=== PATIENT | female | born 1935 | race Two or more races ===

== ENCOUNTER 2022-03-01 20:15 | Inpatient (IN) | payer OTHER, SELFPAY ==
[2022-03-01 21:00] LABS: #Basophils 0.1 10x3/uL (0.0-0.2); #Monocytes 0.7 10x3/uL (0.0-1.1); #Neutrophils 16.5 10x3/uL (1.5-8.4); %Basophils 0.4 % (0.0-2.0); %Eosinophils 0.2 % (0.0-6.0); %Lymphocytes 5.8 % (18.0-47.0); %Monocytes 3.6 % (0.0-10.0); %Neutrophils 89.3 % (40.0-75.0); Hemoglobin 10.5 g/dL (12.0-15.5); Mean Corpuscular HGB CONC 34.2 g/dL (32.0-36.0); Mean Corpuscular Volume 93.6 fl (81.6-98.3); Mean Platelet Volume 9.2 fl (7.4-10.4); Platelet Count 433 10x3/uL (150-450); RBC Distribution Width 12.1 % (11.5-14.5); Red Blood Cell (RBC) Count 3.28 10x6/uL (3.90-5.03); White Blood Cell (WBC) Count 18.4 10x3/uL (3.5-10.5)
[2022-03-01 21:06] LABS: PTT 26.2 sec (22.0-33.0); Prothrombin Time 10.6 sec (9.5-12.1)
[2022-03-01 21:09] LABS: ALT (SGPT) 13 U/L (8-55); AST (SGOT) 21 U/L (5-34); Albumin 3.7 g/dL (3.4-4.8); Alkaline Phosphatase 45 U/L (40-110); Anion Gap 13 mmol/L (10-20); BUN (Urea Nitrogen) 9 mg/dL (9.8-20.1); Bilirubin, Total 0.5 mg/dL (0.2-1.2); Calc. Creatinine Clearance 0 mL/min (70-130); Calcium 8.9 mg/dL (7.8-10.44); Carbon Dioxide 24 mmol/L (23-31); Chloride 98 mmol/L (98-107); Estimated GFR 87; Globulin 3.8 g/dL (2.4-3.5); Glucose 188 mg/dL (83-110); Magnesium 1.8 mg/dL (1.6-2.6); Potassium 3.8 mmol/L (3.5-5.1); Protein, Total 7.5 g/dL (5.8-8.1); Sodium 131 mmol/L (136-145)
[2022-03-01] MEDS ORDERED: Ondansetron PF 4 MG/2 ML Vial ONE (21:26)
[2022-03-01 21:59] LABS: SARS-CoV-2 NAA Rapid Test Not Detected (NotDetected)
[2022-03-01] MEDS ORDERED: Morphine 4 MG/ML VIAL ONE (22:03)
[2022-03-02] MEDS ORDERED: Morphine 2 MG/ML VIAL ONE (00:52)
[2022-03-02] MEDS ORDERED: Ondansetron PF 4 MG/2 ML Vial ONE (03:09)
[2022-03-02] MEDS ORDERED: Morphine 4 MG/ML VIAL ONE (05:56)
[2022-03-02 06:17] LABS: Bilirubin Neg (Negative); Blood, Urine Negative (Negative); Clarity Clear (Clear); Glucose, Urine (Dipstick) 100 mg/dL (Negative); Ketone, Urine Negative (Negative); Leukocyte 25 (Negative); Nitrite Negative (Negative); Protein, Urine (Dipstick) Negative (Neg-Trace); Specific Gravity, Urine 1.015 (1.005-1.030); Urobilinogen Normal mg/dL (Less than 2)
[2022-03-02 06:22] LABS: Bacteria/HPF 1+ HPF (None Seen); RBC/HPF 0-3 HPF (0-3)
[2022-03-02] MEDS ORDERED: cefTRIAXone\\ROCEPHIN 1 GM VIAL ONE (06:40)
[2022-03-02] MEDS ORDERED: Ondansetron ODT 4 MG TAB PO PRN (10:27)
[2022-03-02] MEDS ORDERED: TETANUS, DIPHTHERIA TOX,ADULT (TDVAX) 0.5 ML VIAL IM ONE (10:29)
[2022-03-02] MEDS ORDERED: Communication Order-Pharmacy FS SCH (10:30)
[2022-03-02] MEDS: HYDROcodone/Acetaminophen 7.5/325 mg Tablet PO PRN ×2 (10:39→22:58)
[2022-03-02] MEDS: Ondansetron PF 4 MG/2 ML Vial IVP PRN (10:41)
[2022-03-02] MEDS ORDERED: Dextrose 5% in Water 1,000 ML IV PRN (13:05)
[2022-03-02] MEDS ORDERED: Dextrose 50% Abboject 50 ML SYRINGE SLOW IVP PRN (13:05)
[2022-03-02] MEDS ORDERED: Insulin Regular 300 UNITS/3 ML VIAL SC PRN (13:05)
[2022-03-02] MEDS: Aspirin 81 mg Enteric Coated Tablet PO SCH (21:35)
[2022-03-02] MEDS: metFORMIN 500 MG TAB PO SCH (21:35)
[2022-03-02] MEDS ORDERED: Losartan Potassium 50 MG TAB PO SCH (21:45)
[2022-03-02] MEDS: Potassium Chloride 20 MEQ in Lactated Ringer's 1,000 ML IV SCH (22:52)
[2022-03-03] MEDS: HYDROcodone/Acetaminophen 7.5/325 mg Tablet PO PRN ×3 (03:01→21:51)
[2022-03-03 04:34] LABS: #Basophils 0.1 10x3/uL (0.0-0.2); #Eosinphils 0.2 10x3/uL (0.0-0.5); #Monocytes 0.8 10x3/uL (0.0-1.1); #Neutrophils 15.7 10x3/uL (1.5-8.4); %Basophils 0.4 % (0.0-2.0); %Eosinophils 0.9 % (0.0-6.0); %Lymphocytes 5.9 % (18.0-47.0); %Monocytes 4.4 % (0.0-10.0); %Neutrophils 87.7 % (40.0-75.0); Hemoglobin 10.2 g/dL (12.0-15.5); Mean Corpuscular HGB CONC 34.1 g/dL (32.0-36.0); Mean Corpuscular Hemoglobin 31.5 pg (27.0-33.0); Mean Corpuscular Volume 92.3 fl (81.6-98.3); Mean Platelet Volume 9.2 fl (7.4-10.4); Platelet Count 377 10x3/uL (150-450); RBC Distribution Width 12.4 % (11.5-14.5); Red Blood Cell (RBC) Count 3.24 10x6/uL (3.90-5.03); White Blood Cell (WBC) Count 17.8 10x3/uL (3.5-10.5)
[2022-03-03 04:48] LABS: Anion Gap 11 mmol/L (10-20); BUN (Urea Nitrogen) 7 mg/dL (9.8-20.1); Calc. Creatinine Clearance 68 mL/min (70-130); Calcium 8.5 mg/dL (7.8-10.44); Carbon Dioxide 24 mmol/L (23-31); Chloride 95 mmol/L (98-107); Estimated GFR 86; Glucose 166 mg/dL (83-110); Potassium 3.8 mmol/L (3.5-5.1); Sodium 126 mmol/L (136-145)
[2022-03-03] MEDS: Aspirin 81 mg Enteric Coated Tablet PO SCH ×3 (05:15→21:53)
[2022-03-03] MEDS: metFORMIN 500 MG TAB PO SCH (05:15)
[2022-03-03] MEDS ORDERED: cefTRIAXone\\ROCEPHIN 1 GM in Sodium Chloride 0.9% 100 ML IVPB SCH ×2 (06:15→09:00)
[2022-03-03] MEDS ORDERED: Losartan Potassium 50 MG TAB PO SCH ×2 (06:15→09:00)
[2022-03-03] MEDS ORDERED: Lidocaine 1% w/Epinephrine 1:100K 30 ML VIAL ONE (08:33)
[2022-03-03] MEDS ORDERED: Bupivacaine PF 0.5% 30 ML VIAL ONE (08:33)
[2022-03-03] MEDS ORDERED: Neomycin-Polymyxin 1 ML AMP ONE (08:34)
[2022-03-03] MEDS ORDERED: Rocuronium Bromide 10 MG/ML (10ML VIAL) ONE (08:51)
[2022-03-03] MEDS ORDERED: PROPOFOL 20 ML ONE (08:51)
[2022-03-03] MEDS ORDERED: Dexamethasone 20 MG/5 ML VIAL ONE (08:51)
[2022-03-03] MEDS ORDERED: Ondansetron PF 4 MG/2 ML Vial ONE (08:51)
[2022-03-03] MEDS ORDERED: Fentanyl 100 MCG/2 ML VIAL ONE (08:51)
[2022-03-03] MEDS ORDERED: Lidocaine 2% PF 5 ML VIAL ONE (08:53)
[2022-03-03] MEDS ORDERED: PHENYLEPHRINE-NS 100 MCG/ML 10 ML SYRINGE ONE ×2 (09:58→11:15)
[2022-03-03] MEDS ORDERED: Glycopyrrolate 0.2 MG/ML 5 ML SYRINGE ONE (10:52)
[2022-03-03] MEDS ORDERED: Tranexamic Acid 1,000 MG/10 ML VIAL ONE (11:10)
[2022-03-03] MEDS: Potassium Chloride 20 MEQ in Lactated Ringer's 1,000 ML IV SCH (11:18)
[2022-03-03] MEDS: Insulin Regular 300 UNITS/3 ML VIAL SC PRN (12:58)
[2022-03-04 05:01] LABS: Hemoglobin 10.1 g/dL (12.0-15.5); MDiff Complete? YES; Mean Corpuscular HGB CONC 34.9 g/dL (32.0-36.0); Mean Corpuscular Hemoglobin 31.8 pg (27.0-33.0); Mean Corpuscular Volume 90.9 fl (81.6-98.3); Mean Platelet Volume 9.4 fl (7.4-10.4); Platelet Count 373 10x3/uL (150-450); RBC Distribution Width 12.4 % (11.5-14.5); Red Blood Cell (RBC) Count 3.18 10x6/uL (3.90-5.03); White Blood Cell (WBC) Count 20.1 10x3/uL (3.5-10.5)
[2022-03-04 05:12] LABS: Anion Gap 13 mmol/L (10-20); BUN (Urea Nitrogen) 8 mg/dL (9.8-20.1); Calc. Creatinine Clearance 73 mL/min (70-130); Calcium 8.5 mg/dL (7.8-10.44); Carbon Dioxide 23 mmol/L (23-31); Chloride 94 mmol/L (98-107); Estimated GFR 88; Glucose 145 mg/dL (83-110); Potassium 3.7 mmol/L (3.5-5.1); Sodium 126 mmol/L (136-145)
[2022-03-04 05:25] LABS: Band 1 % (5-11); Lymphocytes 4 % (21-51); Monocytes 10 % (0-10); Myelocyte 1 % (0-0); Neutrophil 84 % (42-75); Platelet Morphology Comment Appears Adequate
[2022-03-04] MEDS ORDERED: CEFAZOLIN 2 GM in Sodium Chloride 0.9% 100 ML IVPB SCH (06:00)
[2022-03-04] MEDS: HYDROcodone/Acetaminophen 7.5/325 mg Tablet PO PRN ×2 (06:39→21:29)
[2022-03-04] MEDS ORDERED: cefTRIAXone\\ROCEPHIN 1 GM in Sodium Chloride 0.9% 100 ML IVPB SCH (08:00)
[2022-03-04] MEDS ORDERED: Cephalexin 500 MG CAP PO SCH (09:00)
[2022-03-04] MEDS ORDERED: Piperacillin/Tazobactam 3.375 GM in Sodium Chloride 0.9% 100 ML IVPB SCH (09:00)
[2022-03-04] MEDS: Sodium Chloride 0.9% 1,000 ML IV SCH (09:24)
[2022-03-04] MEDS: Aspirin 325 MG TAB PO SCH ×2 (09:24→21:30)
[2022-03-04] MEDS: Losartan Potassium 50 MG TAB PO SCH (09:24)
[2022-03-04] MEDS: Potassium Chloride 20 MEQ in Lactated Ringer's 1,000 ML IV SCH (09:43)
[2022-03-04] MEDS: Insulin Regular 300 UNITS/3 ML VIAL SC PRN (11:53)
[2022-03-04] MEDS: Piperacillin/Tazobactam 3.375 GM in Sodium Chloride 0.9% 100 ML IVPB SCH ×2 (13:17→21:30)
[2022-03-04] MEDS ORDERED: traMADol HCl 50 MG TAB PO PRN (18:38)
[2022-03-05] MEDS: Sodium Chloride 0.9% 1,000 ML IV SCH ×3 (03:45→08:24)
[2022-03-05] MEDS: Piperacillin/Tazobactam 3.375 GM in Sodium Chloride 0.9% 100 ML IVPB SCH ×3 (05:34→21:23)
[2022-03-05 05:58] LABS: #Basophils 0.1 10x3/uL (0.0-0.2); #Eosinphils 0.3 10x3/uL (0.0-0.5); #Monocytes 1.4 10x3/uL (0.0-1.1); %Basophils 0.7 % (0.0-2.0); %Eosinophils 2.4 % (0.0-6.0); %Lymphocytes 11.5 % (18.0-47.0); %Monocytes 10.2 % (0.0-10.0); %Neutrophils 74.5 % (40.0-75.0); Hemoglobin 8.9 g/dL (12.0-15.5); Mean Corpuscular HGB CONC 34.4 g/dL (32.0-36.0); Mean Corpuscular Hemoglobin 32.1 pg (27.0-33.0); Mean Corpuscular Volume 93.5 fl (81.6-98.3); Mean Platelet Volume 9.6 fl (7.4-10.4); Platelet Count 302 10x3/uL (150-450); RBC Distribution Width 12.7 % (11.5-14.5); Red Blood Cell (RBC) Count 2.77 10x6/uL (3.90-5.03); White Blood Cell (WBC) Count 13.5 10x3/uL (3.5-10.5)
[2022-03-05 06:09] LABS: Anion Gap 12 mmol/L (10-20); BUN (Urea Nitrogen) 7 mg/dL (9.8-20.1); Calc. Creatinine Clearance 67 mL/min (70-130); Calcium 8.1 mg/dL (7.8-10.44); Carbon Dioxide 24 mmol/L (23-31); Chloride 99 mmol/L (98-107); Estimated GFR 86; Glucose 146 mg/dL (83-110); Potassium 3.8 mmol/L (3.5-5.1); Sodium 131 mmol/L (136-145)
[2022-03-05] MEDS: Polyethylene Glycol 3350 17 GM Packet PER TUBE SCH (08:24)
[2022-03-05] MEDS: Aspirin 325 MG TAB PO SCH ×2 (08:25→21:23)
[2022-03-05] MEDS: Losartan Potassium 50 MG TAB PO SCH (08:25)
[2022-03-05] MEDS: HYDROcodone/Acetaminophen 7.5/325 mg Tablet PO PRN ×2 (13:10→21:36)
[2022-03-05] MEDS: Insulin Regular 300 UNITS/3 ML VIAL SC PRN (18:07)
[2022-03-06] MEDS ORDERED: Milk Of Magnesia 30 ML UDCUP PO SCH (00:30)
[2022-03-06 01:23] VITALS: BMI 22.6
[2022-03-06] MEDS: Sodium Chloride 0.9% 1,000 ML IV SCH (01:34)
[2022-03-06] MEDS: Piperacillin/Tazobactam 3.375 GM in Sodium Chloride 0.9% 100 ML IVPB SCH (05:06)
[2022-03-06 05:22] LABS: #Basophils 0.1 10x3/uL (0.0-0.2); #Eosinphils 0.4 10x3/uL (0.0-0.5); #Monocytes 0.9 10x3/uL (0.0-1.1); #Neutrophils 8.6 10x3/uL (1.5-8.4); %Basophils 0.5 % (0.0-2.0); %Eosinophils 3.1 % (0.0-6.0); %Lymphocytes 13.6 % (18.0-47.0); %Neutrophils 74.3 % (40.0-75.0); Hemoglobin 8.6 g/dL (12.0-15.5); Mean Corpuscular HGB CONC 33.9 g/dL (32.0-36.0); Mean Corpuscular Hemoglobin 31.7 pg (27.0-33.0); Mean Corpuscular Volume 93.7 fl (81.6-98.3); Mean Platelet Volume 9.9 fl (7.4-10.4); Platelet Count 300 10x3/uL (150-450); RBC Distribution Width 12.7 % (11.5-14.5); Red Blood Cell (RBC) Count 2.71 10x6/uL (3.90-5.03); White Blood Cell (WBC) Count 11.6 10x3/uL (3.5-10.5)
[2022-03-06 05:31] LABS: Anion Gap 10 mmol/L (10-20); BUN (Urea Nitrogen) 7 mg/dL (9.8-20.1); Calc. Creatinine Clearance 76 mL/min (70-130); Calcium 8.2 mg/dL (7.8-10.44); Carbon Dioxide 27 mmol/L (23-31); Chloride 97 mmol/L (98-107); Estimated GFR 89; Glucose 131 mg/dL (83-110); Potassium 3.4 mmol/L (3.5-5.1); Sodium 131 mmol/L (136-145)
[2022-03-06] MEDS: HYDROcodone/Acetaminophen 7.5/325 mg Tablet PO PRN (08:38)
[2022-03-06] MEDS: Polyethylene Glycol 3350 17 GM Packet PER TUBE SCH (08:38)
[2022-03-06] MEDS: Losartan Potassium 50 MG TAB PO SCH (08:38)
[2022-03-06] MEDS: Aspirin 325 MG TAB PO SCH ×2 (08:38→20:53)
[2022-03-06] MEDS: Ondansetron PF 4 MG/2 ML Vial IVP PRN (14:31)
[2022-03-06] MEDS: Insulin Regular 300 UNITS/3 ML VIAL SC PRN (16:57)
[2022-03-07 05:30] LABS: #Basophils 0.1 10x3/uL (0.0-0.2); #Eosinphils 0.3 10x3/uL (0.0-0.5); #Monocytes 0.8 10x3/uL (0.0-1.1); #Neutrophils 8.2 10x3/uL (1.5-8.4); %Basophils 0.7 % (0.0-2.0); %Eosinophils 2.8 % (0.0-6.0); %Lymphocytes 14.6 % (18.0-47.0); %Monocytes 7.4 % (0.0-10.0); Hemoglobin 9.1 g/dL (12.0-15.5); Mean Corpuscular HGB CONC 33.5 g/dL (32.0-36.0); Mean Corpuscular Hemoglobin 31.3 pg (27.0-33.0); Mean Corpuscular Volume 93.5 fl (81.6-98.3); Mean Platelet Volume 9.5 fl (7.4-10.4); Platelet Count 370 10x3/uL (150-450); RBC Distribution Width 12.6 % (11.5-14.5); Red Blood Cell (RBC) Count 2.91 10x6/uL (3.90-5.03); White Blood Cell (WBC) Count 11.1 10x3/uL (3.5-10.5)
[2022-03-07 05:35] LABS: Anion Gap 13 mmol/L (10-20); BUN (Urea Nitrogen) 6 mg/dL (9.8-20.1); Calc. Creatinine Clearance 78 mL/min (70-130); Calcium 8.8 mg/dL (7.8-10.44); Carbon Dioxide 29 mmol/L (23-31); Chloride 95 mmol/L (98-107); Estimated GFR 90; Glucose 144 mg/dL (83-110); Potassium 3.7 mmol/L (3.5-5.1); Sodium 133 mmol/L (136-145)
[2022-03-07 08:42] VITALS: BP 152/80; TEMP 98.6
[2022-03-07] MEDS: Aspirin 325 MG TAB PO SCH (09:34)
[2022-03-07] MEDS: Polyethylene Glycol 3350 17 GM Packet PER TUBE SCH (09:34)
[2022-03-07] MEDS: HYDROcodone/Acetaminophen 7.5/325 mg Tablet PO PRN (09:34)
[2022-03-07] MEDS: Losartan Potassium 50 MG TAB PO SCH (09:34)
== END 2022-03-07 11:38 | DRG 521 ==
LOC: CSHERS 20:15 → CSHTELE 03-02 09:27 → OBSVTOIN 03-03 16:48
PROVIDERS: ADMIT Internal Medicine; ATTEND Family Medicine
PROC: 0SRR0J9 Replacement of Right Hip Joint, Femoral Surface with Synthetic Substitute, Cemented, Open Approach (ICD-10-PCS; principal; 2022-03-03)
DX: S72.001A Fracture of unspecified part of neck of right femur, initial encounter for closed fracture (principal); A41.9 Sepsis, unspecified organism; E87.1 Hypo-osmolality and hyponatremia; I10 Essential (primary) hypertension; E11.9 Type 2 diabetes mellitus without complications; Z20.822 Contact with and (suspected) exposure to COVID-19; D72.829 Elevated white blood cell count, unspecified; W19.XXXA Unspecified fall, initial encounter; Z79.82 Long term (current) use of aspirin; Z79.84 Long term (current) use of oral hypoglycemic drugs; Z79.899 Other long term (current) drug therapy; Z90.710 Acquired absence of both cervix and uterus; Y92.9 Unspecified place or not applicable
CPT/HCPCS: 36416; 71045; 80048; 80053; 81003; 81015; 83735; 84145; 85025; 85610; 85730; 86850; 86900; 86901; 87040; 87086; 90472; 90714; 93005; 94760; 96361; 96365; 96375; 96376; C1713; C1776; G0378; J0696; J1100; J1650; J1815; J2001; J2270; J2272; J2405; J2543; J2704; J3010; J3480; J3490; J7050; J7120; S0020